=== PATIENT | female | born 1955 | race Two or more races ===

== ENCOUNTER → 2018-01-09 | Outpatient (CLI) | payer OTHER ==
[~2018-01-09] MED LIST: ALBU90OI INH; AMIT50 PO; Daily Multiple1 EACH PO; HEARTBURN RELI150 M1 PO; KRILL OIL 3001 EACH PO; MEDR5 PO; MELO7.5 PO; PROBIOTIC1 EAC1 PO
[2018-01-09 12:48] LABS: Source, Urine Clean Catch
[2018-01-09 13:10] LABS: Bilirubin, Urine Neg (Neg); Blood, Urine 4+ (Neg); Glucose Qualitative, Urine Neg (Neg); Ketones, Urine 1+ (Neg); Leukocyte Esterase, Urine 3+ (Neg); Nitrite, Urine Pos (Neg); Protein, Urine 4+ (Neg); Urobilinogen, Urine NORM (Normal)
[2018-01-09 13:23] LABS: Appearance, Urine Cloudy (Clear); Color, Urine Red (P-Yellow)
[2018-01-09 13:26] LABS: Bacteria Many /hpf; Red Blood Cells, Urine TNTC /hpf (0-2); Squamous Epithelial Cells Few /hpf (Few); White Blood Cells, Urine 50-100 /hpf (0-5)
[2018-01-09 13:27] LABS: Renal Epithelial Few /hpf (0-Rare)
== END | disposition home or self-care (01) ==
LOC: LAB 12:44 → LAB SHORT 12:44
PROVIDERS: Radiology Therapeutic Radiology
DX: C79.71 Secondary malignant neoplasm of right adrenal gland (principal); N39.0 Urinary tract infection, site not specified
CPT/HCPCS: 81001